=== PATIENT | female | born 1990 | race Caucasian/White ===

== ENCOUNTER 2017-06-10 17:06 | Emergency (ER) | payer BC ==
[2017-06-10 19:24] VITALS: BP 111/80
--- NOTE | 2017-06-10 19:41 | UC ---
Complaint Female HPI - HPI Summary HPI Summary: Pt presents with c/o of sudden onset of dysuria, frequency urgency X 4 days. - History Of Current Complaint Chief Complaint: UCGU Stated Complaint: UTI Time Seen by Provider: 06/10/17 19:23 Hx Obtained From: Patient Hx Last Menstrual Period: NUVARING ?: No Onset/Duration: Sudden Onset, Lasting Days Timing: Constant Severity Initially: Mild Severity Currently: Mild Pain Intensity: 0 Character: Burning Aggravating Factor(s): Urination Alleviating Factor(s): Nothing Associated Signs And Symptoms: Positive: Back Pain - Risk Factors Ectopic Risk Factor: Negative Ovarian Torsion Risk Factor: Reproductive Age - Allergies/Home Medications Allergies/Adverse Reactions: Allergies Allergy/AdvReac Type Severity Reaction Status Date / Time No Known Allergies Allergy Verified 06/10/17 19:20 PMH/Surg Hx/FS Hx/Imm Hx Previously Healthy: Yes Other History Of: Negative For: HIV, Hepatitis B, Hepatitis C - Surgical History Surgical History: Yes Surgery Procedure, Year, and Place: tonsils - Family History Known Family History: Negative: None Family History: no known cardio-vascular issues in family - Social History Occupation: Employed Full-time Lives: With Family Alcohol Use: Weekly Alcohol Amount: ONCE/WEEK Substance Use Type: None Smoking Status (MU): Never Smoked Tobacco Have You Smoked in the Last Year: No - Immunization History Most Recent Influenza Vaccination: none Review of Systems Constitutional: Negative Skin: Negative Eyes: Negative ENT: Negative Respiratory: Negative Cardiovascular: Negative Gastrointestinal: Negative Genitourinary: Dysuria, Frequency, Urgency Motor: Negative Neurovascular: Negative Musculoskeletal: Myalgia - low back discomfort Neurological: Negative Psychological: Negative Is Patient Immunocompromised?: No All Other Systems Reviewed And Are Negative: Yes Physical Exam Triage Information Reviewed: Yes Appearance: Well-Appearing Vital Signs: Initial Vital Signs Temp 97.6 F 06/10/17 19:21 Pulse 93 06/10/17 19:21 BP 111/80 06/10/17 19:21 Pulse Ox 99 06/10/17 19:21 Vital Signs Reviewed: Yes Eye Exam: Normal ENT Exam: Normal Dental Exam: Normal Neck exam: Normal Respiratory: Positive: No respiratory distress Abdominal Exam: Normal Musculoskeletal Exam: Normal Neurological Exam: Normal Psychological Exam: Normal Skin Exam: Normal Complaint Female Dx - Differential Dx/Diagnosis Differential Diagnosis/HQI/PQRI: Urinary Tract Infection Provider Diagnoses: UTI Discharge - Discharge Plan Condition: Stable Disposition: HOME Prescriptions: Cephalexin CAP* [Keflex 500 CAP*] 500 mg PO Q12H #14 cap Phenazopyridine TAB* [Pyridium 100 mg TAB*] 100 mg PO Q8H #3 tab Patient Education Materials: Urinary Tract Infection in Women (ED) Referrals: [facility] [place] [facility] [Outside] No Primary Care Phys,NOPCP [Primary Care Provider] -
[2017-06-10] MEDS ORDERED: Phenazopyridine TAB* 100 MG PO ONE (19:44)
[2017-06-10] MEDS ORDERED: Cephalexin CAP* 500 MG PO ONE (19:44)
== END 2017-06-10 19:57 | disposition home or self-care (01) ==
LOC: UCCORT 17:06
DX: N39.0 Urinary tract infection, site not specified (principal); B96.20 Unspecified Escherichia coli [E. coli] as the cause of diseases classified elsewhere
CPT/HCPCS: 81003; 87077; 87086; 87186; 99212; A9270-GY; G0463

== ENCOUNTER 2017-11-08 17:37 | Emergency (ER) | payer BC ==
[2017-11-08 17:56] VITALS: BP 110/75
--- NOTE | 2017-11-08 19:08 | UC ---
Complaint Female HPI - HPI Summary HPI Summary: ONSET OF FOUL-SMELLING URINE AND URINARY FREQUENCY THIS MORNING. HAS SOME MILD RIGHT FLANK PAIN BUT NO NAUSEA OR FEVER. STATES NO CHANCE OF . - History Of Current Complaint Chief Complaint: UCGU Stated Complaint: URINARY COMPLAINT Time Seen by Provider: 11/08/17 18:06 Hx Obtained From: Patient Hx Last Menstrual Period: 10/15/17 Onset/Duration: Gradual Onset, Lasting Hours, Still Present Severity Initially: Moderate Pain Intensity: 0 Pain Scale Used: 0-10 Numeric Character: Burning Aggravating Factor(s): Urination Alleviating Factor(s): Nothing Associated Signs And Symptoms: Positive: Back Pain. Negative: Fever, Vaginal Discharge, Nausea, Vomiting(# Of Episodes =) - Allergies/Home Medications Allergies/Adverse Reactions: Allergies Allergy/AdvReac Type Severity Reaction Status Date / Time No Known Allergies Allergy Verified 11/08/17 17:52 Home Medications: Home Medications Ethinyl Estradiol/Drospirenone [Julee 28 Tablet (Nf)] 1 each PO DAILY 11/08/17 [ History Confirmed 11/08/17] PMH/Surg Hx/FS Hx/Imm Hx Previously Healthy: Yes Other History Of: Negative For: HIV, Hepatitis B, Hepatitis C - Surgical History Surgical History: Yes Surgery Procedure, Year, and Place: tonsils - Family History Known Family History: Negative: Hypertension Family History: no known cardio-vascular issues in family - Social History Alcohol Use: Weekly Alcohol Amount: ONCE/WEEK Substance Use Type: None Smoking Status (MU): Never Smoked Tobacco Have You Smoked in the Last Year: No - Immunization History Most Recent Influenza Vaccination: none Review of Systems Constitutional: Negative Respiratory: Negative Cardiovascular: Negative Gastrointestinal: Negative Genitourinary: Frequency, Urgency Musculoskeletal: Other: - RIGHT FLANK PAIN All Other Systems Reviewed And Are Negative: Yes Physical Exam Triage Information Reviewed: Yes Appearance: Well-Appearing, No Pain Distress, Well-Nourished Vital Signs: Initial Vital Signs Temp 98.5 F 11/08/17 17:50 Pulse 66 11/08/17 17:50 Resp 14 11/08/17 17:50 BP 110/75 11/08/17 17:50 Pulse Ox 100 11/08/17 17:50 Vital Signs Reviewed: Yes Eyes: Positive: Conjunctiva Clear ENT: Positive: Hearing grossly normal Neck: Positive: Supple Respiratory: Positive: No respiratory distress, No accessory muscle use Cardiovascular: Positive: Pulses Normal Abdomen Description: Positive: Nontender, Soft. Negative: CVA Tenderness (R), CVA Tenderness (L), Distended, Guarding Musculoskeletal: Positive: No Edema Neurological: Positive: Alert Psychological: Positive: Age Appropriate Behavior Skin: Negative: rashes Diagnostics - Laboratory Diagnostic Studies Completed/Ordered: URINE DIP SP. GR. 1.010, TRACE LEUKS, POS NITRITES Complaint Female Dx - Differential Dx/Diagnosis Provider Diagnoses: UTI Discharge - Sign-Out/Discharge Documenting (check all that apply): Discharge/Admit/Transfer - Discharge Plan Condition: Stable Disposition: HOME Prescriptions: Sulfamethox/Trimethoprim DS* [Bactrim DS 800/160 TAB*] 1 tab PO BID #10 tab Patient Education Materials: Urinary Tract Infection in Women (ED) Referrals: No Primary Care Phys,NOPCP [Primary Care Provider] - Additional Instructions: CALL THE NUMBER BELOW FOR ASSISTANCE IN ESTABLISHING WITH A PCP An additional resource available to assist in finding the appropriate physician for your health care needs is the [facility] ([facility]). You may contact them by calling [phone]. - Billing Disposition and Condition Condition: STABLE Disposition: Home
== END 2017-11-08 18:52 | disposition home or self-care (01) ==
LOC: UCCORT 17:37
DX: N39.0 Urinary tract infection, site not specified (principal); B96.20 Unspecified Escherichia coli [E. coli] as the cause of diseases classified elsewhere
CPT/HCPCS: 81003; 87077; 87086; 87186; 99212; G0463

== ENCOUNTER 2018-03-30 12:46 | Emergency (ER) | payer BC ==
--- NOTE | 2018-03-30 12:53 | UC ---
Throat Pain/Nasal [place] HPI - HPI Summary HPI Summary: Patient presents to urgent care with her significant other. Patient states starting last had head congestion which settled in her chest. Patient states she has a coarse cough and feels like there is mucous to spit up but doesn't come out. Patient states she intermittently feels nauseous has some upper body aches. Patient states when she takes a deep breath it makes her cough more. Patient with some mild nausea but has not vomited. Patient without diarrhea. Patient without any abdominal pain. Patient denies documented fever but states she feels clammy at times. Patient has taken over- the-counter cough medication as well as relief. Patient states she is not . Patient's signicant other was sick but she got better. Patient's medications reviewed. - History of Current Complaint Stated Complaint: SINUS PRESSURE, NAUSEA, BACK PAIN Hx Obtained From: Patient Hx Last Menstrual Period: 10/15/17 Onset/Duration: Gradual Onset Severity: Mild - Allergies/Home Medications Allergies/Adverse Reactions: Allergies Allergy/AdvReac Type Severity Reaction Status Date / Time No Known Allergies Allergy Verified 03/30/18 12:52 Home Medications: Home Medications Albuterol 2.5MG/3ML (0.083%)* [Ventolin 2.5 MG/3 ML NEB.DONOVAN*] 2.5 mg INH Q4H PRN 03/30/18 [History Confirmed 03/30/18] Aspirin/Acetaminophen/Caffeine [Excedrin Extra Strength Caplet] 1 each PO PRN [History] D-Methorphan/PE/Acetaminophen [Vicks Dayquil Cold & Flu] 1 cap PO PRN 03/30/18 [ History] PMH/Surg Hx/FS Hx/Imm Hx Previously Healthy: Yes Other History Of: Negative For: HIV, Hepatitis B, Hepatitis C - Surgical History Surgical History: Yes Surgery Procedure, Year, and Place: tonsils - Family History Known Family History: Positive: Non-Contributory Negative: Hypertension Family History: no known cardio-vascular issues in family - Social History Occupation: Employed Full-time - software Lives: With Family Alcohol Use: Weekly Alcohol Amount: ONCE/WEEK Substance Use Type: None Smoking Status (MU): Never Smoked Tobacco Have You Smoked in the Last Year: No - Immunization History Most Recent Influenza Vaccination: none Review of Systems All Other Systems Reviewed And Are Negative: Yes Constitutional: Positive: Fever, Chills, Fatigue Skin: Positive: Negative Eyes: Positive: Negative ENT: Positive: Sinus Congestion Respiratory: Positive: Shortness Of Breath, Cough, Other - no pleuritic pain Cardiovascular: Positive: Negative Gastrointestinal: Positive: Nausea. Negative: Abdominal Pain, Vomiting Genitourinary: Positive: Negative Motor: Positive: Other - upper back pain Neurological: Positive: Negative Physical Exam - Summary Physical Exam Summary: Vital Signs Reviewed: Yes A+Ox3, no distress Eyes: Conjunctiva Clear, ALVINA. EOM intact and full ENT: Hearing grossly normal TM x 2 clear, turbinates inflamed, + PND, mmoist, uvula midline, no exudate, no erythema Neck: Positive: Supple, no lymphadenopathy Respiratory: Positive: No respiratory distress, No accessory muscle use + scattered wheeze, rhonci right upper lung Cardiovascular: RRR nl s1, s2 no m/r CBT <2 sec abd soft + BS nt/nd no guarding, no distension Musculoskeletal Exam: WYMAN x 4 without difficulty Strength Intact, ROM Intact Neurological: Positive: Alert, + sensation throughout Psychological: Positive: Normal Response To Family Skin: Positive: no rash, no ecchymosis Triage Information Reviewed: Yes Diagnostics - Radiology No standard instances Radiology Interpretation Completed By: Radiologist - Patient Name: TRESSA STEVENS Medical Record#: [id number] Ordering Physician: Iesha Murphy MD Acct.#: [id number] : 1990 Age: 27 Sex: F Location: [facility] Exam Date: 03/30/18 1309 ADM Status: [facility] ER Order Information: CHEST PA & LAT 2 VWS Accession Number: [id number] CPT: 81222 INDICATION: Cough and wheezes. COMPARISON: There are no relevant prior studies available for comparison. TECHNIQUE: Dual- energy PA and lateral views of the chest were obtained. FINDINGS: The heart is within normal limits in size. Mediastinal and hilar contours appear within normal limits. The lungs are clear. No pleural effusion is present. IMPRESSION: NO EVIDENCE FOR ACTIVE CARDIOPULMONARY DISEASE. <Electronically signed by Isac Cook MD in OV> 03/30/18 1330 Dictated By: Isac Cook MD Dictated Date/ Time: 03/30/18 1330 Transcribed Date/Time: 03/30/18 1329 Copy to: CC:Iesha Murphy MD; No Primary Care Phys,NOPCP Imaging - [facility] Imaging - [facility] Imaging - [facility] [address] [place] [id number] [address] [address] ph [phone] ph ([phone]) ph ([phone]) This report is only to be considered final once signed by the Provider(s) as displayed in the "<Electronically Signed by >" field (s). Absence of a signature indicates the report is in a draft status and still needs to be finalized. In the event this document was created by someone other than the signing Provider, the individual initiating the document will be listed in the "Entered by:" or "Dictated by:" martinez. 1 of 1 Re-Evaluation - Re-Evaluation First Eval Re-Evaluation Time: 13:42 Change: Improved Comment: Pt states feels improvement following neb. wheezing resolved. will Rx albuterol (pt has machine), prednisone abx. secretion precaution. hydration. return precaution Throat Pain/Nasal Course/Dx - Course Course Of Treatment: Patient presents to urgent care reporting 7 days of head congestion and fill her chest. Patient now with coarse cough nonproductive. Patient with discomfort in her upper back when she coughs. Patient also reports feeling nausea and clammy. No vomiting. Patient is intermittently feels anxious. No lightheadedness. No chest pressure. No shortness of breath with activity. Patient does not smoke. Patient doesn't have a history of lung disease. Patient states she doesn't have does home use a once with little improvement. On exam vital signs are stable. Patient does have scattered wheezing and some expiratory rhonchi the upper lung field on the right. We'll check a chest x-ray as well as a DuoNeb and reassessed. Anticipate patient will be given antibiotics, MDI. May give prednisone. Patient comfortable in agreement with plan. - Differential Dx/Diagnosis Provider Diagnoses: acute bronchitis Discharge - Sign-Out/Discharge Documenting (check all that apply): Patient Departure All imaging exams completed and their final reports reviewed: No Studies - Discharge Plan Condition: Stable Disposition: HOME Prescriptions: Albuterol 2.5MG/3ML (0.083%)* [Ventolin 2.5 MG/3 ML NEB.DONOVAN*] 2.5 mg INH Q4H # 30 neb.donovan Albuterol HFA INHALER* [Ventolin HFA Inhaler*] 1 puff INH Q4H PRN #1 mdi PRN Reason: wheeze Amoxicillin PO (*) [Amoxicillin 500 MG CAP*] 500 mg PO Q12H #20 cap predniSONE TAB* [Deltasone TAB*] 50 mg PO DAILY #5 tab Patient Education Materials: Acute Bronchitis (ED) Referrals: [facility] [place] [facility]ERR[facility] [Outside] No Primary Care Phys,NOPCP [Primary Care Provider] - Additional Instructions: - Stay well hydrated. Drink plenty of non-alcoholic, non-caffinated beverages. - Alternate ibuprofen (Advil, Motrin) 600mg and Tylenol every 3 hours for pain or fever. Take with food. Do NOT take for more than 4-5 days. - These infections are spread by secretions - do NOT share eating or drinking utensils - clean items you share with other people such as cell phones, computer mouse, TV remote, computer tablets,etc. Once you have been antibiotics for 2 days, change your toothbrush and your pillowcase. - get plenty of restful sleep - Take antibiotics and prednisone as prescribed. - humidify the air in the room where you sleep - boil water, run a hot steam shower, vaporizer, cups of water by heat register - okay to take over the counter decongestant and cough medication - use nasal spray as prescribed - contact your doctor or return with questions or concerns - Billing Disposition and Condition Condition: STABLE Disposition: Home
[2018-03-30 13:02] VITALS: BP 123/85
[2018-03-30] MEDS: Albuterol/Ipratropium NEB.SOL* Albuterol 2.5 MG/Ipratropium 0.5 MG 3 ML INH ONE (13:18)
--- NOTE | 2018-03-30 14:21 | UC ---
Re-Evaluation - Re-Evaluation First Eval Re-Evaluation Time: 13:42 Change: Improved Comment: Pt states feels improvement following neb. wheezing resolved. will Rx albuterol (pt has machine), prednisone abx. secretion precaution. hydration. return precaution Discharge - Sign-Out/Discharge Documenting (check all that apply): Post-Discharge Follow Up All imaging exams completed and their final reports reviewed: Yes - Discharge Plan Condition: Stable Disposition: HOME Prescriptions: Albuterol 2.5MG/3ML (0.083%)* [Ventolin 2.5 MG/3 ML NEB.DONOVAN*] 2.5 mg INH Q4H # 30 neb.donovan Albuterol HFA INHALER* [Ventolin HFA Inhaler*] 1 puff INH Q4H PRN #1 mdi PRN Reason: wheeze Amoxicillin PO (*) [Amoxicillin 500 MG CAP*] 500 mg PO Q12H #20 cap predniSONE TAB* [Deltasone TAB*] 50 mg PO DAILY #5 tab Patient Education Materials: Acute Bronchitis (ED) Referrals: [facility] [place] [facility] REFERRAL [Outside] No Primary Care Phys,NOPCP [Primary Care Provider] - Additional Instructions: - Stay well hydrated. Drink plenty of non-alcoholic, non-caffinated beverages. - Alternate ibuprofen (Advil, Motrin) 600mg and Tylenol every 3 hours for pain or fever. Take with food. Do NOT take for more than 4-5 days. - These infections are spread by secretions - do NOT share eating or drinking utensils - clean items you share with other people such as cell phones, computer mouse, TV remote, computer tablets,etc. Once you have been antibiotics for 2 days, change your toothbrush and your pillowcase. - get plenty of restful sleep - Take antibiotics and prednisone as prescribed. - humidify the air in the room where you sleep - boil water, run a hot steam shower, vaporizer, cups of water by heat register - okay to take over the counter decongestant and cough medication - use nasal spray as prescribed - contact your doctor or return with questions or concerns - Billing Disposition and Condition Condition: STABLE Disposition: Home
== END 2018-03-30 13:56 | disposition home or self-care (01) ==
LOC: UCCORT 12:46
DX: J20.9 Acute bronchitis, unspecified (principal)
CPT/HCPCS: 71046; 99212; A9270-GY; G0463